=== PATIENT | male | born 1965 | race Caucasian/White ===

== ENCOUNTER 2017-01-16 08:58 | Emergency (ER) | payer MEDICAID ==
[~2017-01-16] VITALS: Wt 72.5 kg
[2017-01-16] MEDS ORDERED: OSLT75C PO (09:37)
[2017-01-16] MEDS ORDERED: IBUP-1542 PO (09:37)
--- NOTE | 2017-01-16 12:00 | ERD ---
ER Documentation Chief Complaint Date/Time DATE: 01/16/17 TIME: 11:57 Chief Complaint cough fever and headache and body pain for thepast few days HPI Patient is a 51-year-old male with no medical problems who presents with whole body pain. The patient also has sore throat and cough. The patient has had the symptoms for 2 days. He said that he has had fevers. He tried Tylenol. He does not currently have a primary doctor. Upon review of old medical records this is the patient's first visit to the emergency department. ROS All systems reviewed and are negative except as per history of present illness. Medications Home Meds Active Scripts Ibuprofen* (Motrin*) 600 Mg Tab, 600 MG PO Q6H Y for PAIN AND OR ELEVATED TEMP, #30 TAB Prov:RHONDA CALDERON MD 01/16/17 Oseltamivir Phosphate* (Tamiflu*) 75 Mg Capsule, 75 MG PO BID for 5 Days, CAP Prov:RHONDA CALDERON MD 01/16/17 PMhx/Soc Medical and Surgical Hx: pt denies Medical Hx, pt denies Surgical Hx FmHx Family History: diabetes Physical Exam Vitals Vital Signs Date Time Temp Pulse Resp B/P Pulse Ox O2 Delivery O2 Flow Rate FiO2 01/16/17 09:02 98.9 112 21 135/81 97 Physical Exam Const: No acute distress Head: Atraumatic Eyes: Normal Conjunctiva ENT: Normal External Ears, Nose and Mouth. Neck: Full range of motion..~ No meningismus. Resp: Clear to auscultation bilaterally Cardio: Regular rate and rhythm, no murmurs Abd: Soft, non tender, non distended. Normal bowel sounds Skin: No petechiae or rashes Back: No midline or flank tenderness Ext: No cyanosis, or edema Neur: Awake and alert Psych: Normal Mood and Affect Procedures/MDM Patient is a 51-year-old male with no medical problems who presents with whole body pain, sore throat, and cough. I believe he likely has a viral illness and potentially has influenza. Therefore I will treat him with Tamiflu and ibuprofen. The patient can follow-up with a primary doctor the local clinics within 24-48 hours for reevaluation. He can return sooner for any worsening symptoms. I doubt pneumonia or other serious paternal infection. Departure Diagnosis: Primary Impression: Influenza Condition: Fair Patient Instructions: Influenza (Adult) [facility] Usted se levin hecho un examen mdico de control que le indica que no est en lilian condicin que requiera tratamiento urgente en el Departamento de Emergencia. Un estudio ms profundo y el tratamiento de benitez condicin pueden esperar sin ningn riesgo hasta que usted sea atendida/o en el consultorio de benitez mdico o lilian cl lissy. Es responsabilidad suya arreglar lilian cecilia para el seguimiento del pj. MANEJO DE CONDICIONES NO URGENTES EN EL FUTURO 1) Si usted tiene un mdico de atencin primaria: Usted debera llamar a benitez mdico de atencin primaria antes de venir al departamento de emergencia. Despus de las horas de consultorio, benitez doctor o benitez asociado/a est disponible por telfono. El mdico o enfermero de katherine en el servicio telefnico puede asesorarle por rob medio para atender el problema, o pj contrario se puede programar lilian cecilia. 2) Si usted no tiene un mdico de atencin primaria: Llame al mdico o clnica de referencia que aparece abajo yuli las horas de consultorio para hacer lilian cecilia para que le vean. CLINICAS: [facility] [phone] [address] [facility] [phone] [facility] [phone] [address] [facility]. [facility] [phone] [address] [place] [phone] [facility]. [phone] [address] Additional Instructions: Llame al doctor MAANA y hira lilian CECILIA PARA DENTRO DE 1-2 HOFF[place].Dgale a la secretaria que nosotros le instruimos hacer esta cecilia.Avise o llame si benitez condicin se empeora antes de la cecilia. Regresa aqui si peor o no mejor. RHONDA CALDERON MD Jan 16, 2017 11:59
== END 2017-01-16 10:15 | disposition home or self-care (01) ==
LOC: FTE 08:58
DX: J11.1 Influenza due to unidentified influenza virus with other respiratory manifestations (principal)
CPT/HCPCS: 99283

== ENCOUNTER 2017-10-31 08:09 | Emergency (ER) | END 2017-10-31 11:06 | disposition home or self-care (01) ==

== ENCOUNTER 2019-07-03 18:35 | Inpatient (IN) | payer MEDICAID, OTHER ==
[~2019-07-03] VITALS: Ht 167.6 cm; Wt 98.4 kg
[~2019-07-03 18:35] MED LIST: AMOX1TAB10 PO; DOCU-144 PO; ETOMIDATE 20 MG INJ ONE; FINA5TAB4 PO; IBUP-1542 PO; OSEL75CA23 PO; SULF3.5O15 BOTH EYES; TAMS-14 PO
[2019-07-03 18:39] VITALS: Ht 167.6 cm; Wt 98.4 kg
[2019-07-03] MEDS ORDERED: SODIUM CHLORIDE 0.9% 1L BAG IV* STA (18:50)
[2019-07-03] MEDS ORDERED: CEFEPIME 2GM/50 ML (PMX) 50 ML IVPB STA (18:50)
[2019-07-03] MEDS ORDERED: ACETAMINOPHEN 325 MG TAB PO STA (18:50)
[2019-07-03] MEDS ORDERED: ACETAMINOPHEN 325 MG TAB PO PRN ×2 (21:30→22:30)
[2019-07-03] MEDS ORDERED: ONDANSETRON 4 MG INJ IV PRN ×2 (21:30→22:30)
[2019-07-03] MEDS ORDERED: NACL 0.9% 3 ML SYG IV SCH (22:30)
[2019-07-03] MEDS ORDERED: morphine 2 MG INJ IV PRN (22:30)
[2019-07-03] MEDS ORDERED: HYDROCODONE/APAP (5/325) TAB PO PRN (22:30)
[2019-07-03 22:45] VITALS: BP 133/81; PULSE 92; RESP 18
[2019-07-03] MEDS: SOD CHLORIDE 0.9% 1,000 ML IV SCH (23:13)
[2019-07-03] MEDS: CEFTRIAXONE 1 GM/50 ML (PMX) 50 ML IVPB SCH (23:13)
[2019-07-03] MEDS: TAMSULOSIN (SR) 0.4 MG CAP PO SCH (23:23)
[2019-07-03] MEDS: ZOLPIDEM 5 MG TAB PO PRN (23:54)
[2019-07-04] VITALS (17 sets, daily range): BP systolic 115–136; BP diastolic 79–121; PULSE 88–150; RESP 15–24
[2019-07-04] MEDS: SOD CHLORIDE 0.9% 1,000 ML IV SCH ×3 (05:13→20:36)
[2019-07-04] MEDS ORDERED: SULFACETAMIDE 10% BOTH EYES SCH (09:00)
[2019-07-04] MEDS ORDERED: LIDOCAINE 2% 20 ML UROJET SYRINGE MM ONE (16:30)
[2019-07-04] MEDS: PHENAZOPYRIDINE 100 MG TAB PO SCH ×2 (18:47→20:36)
[2019-07-04] MEDS: TAMSULOSIN (SR) 0.4 MG CAP PO SCH (20:36)
[2019-07-04] MEDS: CEFTRIAXONE 1 GM/50 ML (PMX) 50 ML IVPB SCH (22:56)
[2019-07-04] MEDS: ZOLPIDEM 5 MG TAB PO PRN (23:06)
[2019-07-05 02:13] VITALS: BP 136/90; PULSE 95; RESP 18
[2019-07-05] MEDS: SOD CHLORIDE 0.9% 1,000 ML IV SCH ×3 (04:20→21:59)
[2019-07-05 07:13] VITALS: BP 117/81; PULSE 87; RESP 16
[2019-07-05] MEDS: PHENAZOPYRIDINE 100 MG TAB PO SCH ×3 (08:53→21:56)
[2019-07-05] MEDS: FINASTERIDE 5 MG TAB PO SCH (08:53)
[2019-07-05 14:25] VITALS: BP 122/77; PULSE 87; RESP 18
[2019-07-05] MEDS: TAMSULOSIN (SR) 0.4 MG CAP PO SCH (21:56)
[2019-07-05] MEDS: ZOLPIDEM 5 MG TAB PO PRN (21:56)
[2019-07-05] MEDS: CEFTRIAXONE 1 GM/50 ML (PMX) 50 ML IVPB SCH (21:56)
[2019-07-06 02:09] VITALS: BP 130/95; PULSE 74; RESP 18
[2019-07-06] MEDS: SOD CHLORIDE 0.9% 1,000 ML IV SCH ×2 (06:02→14:00)
[2019-07-06 07:22] VITALS: BP 137/98; PULSE 76; RESP 18
[2019-07-06] MEDS: FINASTERIDE 5 MG TAB PO SCH (08:38)
[2019-07-06] MEDS: PHENAZOPYRIDINE 100 MG TAB PO SCH ×2 (08:38→13:30)
[2019-07-06] MEDS ORDERED: POTASSIUM CHLORIDE (SR) 20 MEQ TAB PO STA (10:03)
[2019-07-06 14:26] VITALS: BP 125/83; PULSE 95; RESP 18
== END 2019-07-06 16:50 | disposition home or self-care (01) | DRG 872 ==
LOC: E/R 18:35 → PP2 21:17 → ICU 07-04 05:04 → MS1 07-04 18:00
PROVIDERS: ADMIT Internal Medicine; ATTEND Family Medicine
DX: A41.9 Sepsis, unspecified organism (principal); N13.6 Pyonephrosis; E87.1 Hypo-osmolality and hyponatremia; N41.9 Inflammatory disease of prostate, unspecified; R33.9 Retention of urine, unspecified
CPT/HCPCS: 36415; 71045; 73221; 76536; 76775; 80048; 80053; 81001; 82962; 83036; 83605; 83735; 84100; 84484; 85025; 85610; 85730; 87086; 93005; 96374; 97167; J0692; J0696; J7030